=== PATIENT | female | born 1945 | race Caucasian/White ===

== ENCOUNTER → 2019-07-11 10:46 | Outpatient (CLI) | payer MEDICARE, SELFPAY ==
[2019-07-11 11:19] LABS: Basophils % 0.2 % (0.1-2.0); Eosinophils # 0.2 K/mm3 (0.0-0.4); Eosinophils % 3.3 % (0.1-12.0); Hematocrit 39.8 % (37.0-47.0); Hemoglobin 12.9 g/dL (12.2-16.2); Lymphocytes # 1.1 K/mm3 (0.7-4.5); Lymphocytes % 16.5 % (10-50); Mean Corpuscular HGB Conc 32.3 g/dL (31.8-35.4); Mean Corpuscular Hemoglobin 29.1 pg (27.0-31.2); Mean Platelet Volume 7.9 fl (7.4-10.4); Monocytes # 0.4 K/mm3 (0.1-1.0); Monocytes % 5.2 % (1.7-9.3); Neutrophils # 5.1 K/mm3 (1.8-7.8); Neutrophils % 74.8 % (37.0-80.0); Platelet Count 217 K/mm3 (142-424); Red Blood Count 4.42 M/mm3 (4.20-5.40); Red Cell Distribution Width 13.9 % (11.5-17.5); White Blood Count 6.9 K/mm3 (4.8-10.8)
[2019-07-11 11:56] LABS: Amylase 49 U/L (25-115); Anion Gap 10.8 mEq/L (5-15); Blood Urea Nitrogen 29 mg/dL (7-18); Calcium 9.4 mg/dL (8.5-10.1); Carbon Dioxide 29 mmol/L (21.0-32.0); Chloride 104 mmol/L (98-107); Creatinine,Serum 1.14 mg/dL (0.55-1.02); Estimated Glomerular Filt Rate 47 ml/min (>60); GFR (African American) 56 ML/MIN (>60); Glucose 98 mg/dL (74-106); Potassium 5.8 mmoL/L (3.5-5.1); Sodium 138 mmol/L (136-145)
== END ==
PROVIDERS: Visit Provider Internal Medicine
DX: K52.9 Noninfective gastroenteritis and colitis, unspecified (principal)
CPT/HCPCS: 36415; 80048; 82150; 85025

== ENCOUNTER → 2020-08-21 14:17 | Outpatient (POV) | payer MEDICARE, SELFPAY | PROVIDERS: Visit Provider Dermatology | DX: Z00.00 Encounter for general adult medical examination without abnormal findings (principal) ==

== ENCOUNTER → 2021-01-25 10:34 | Outpatient (CLI) | payer MEDICARE, SELFPAY ==
--- NOTE | 2021-01-25 | XR_ITS ---
PROCEDURE: XR SHOULDER LT MIN 2V CLINICAL INDICATION: LT SHOULDER INJURY Pain COMPARISON: None FINDINGS: No fracture or dislocation. No lytic or blastic change. There is normal mineralization. Mild osteoarthritic changes are present at the glenohumeral joint Other findings:None. IMPRESSION: No acute findings. Dictated by: Amandeep Bryan MD 01/25/2021 11:04 Amandeep Bryan MD in [place] 01/25/2021 11:04
--- NOTE | 2021-01-25 | XR_ITS ---
PROCEDURE: XR FINGER LT MIN 2V CLINICAL INDICATION: LT THUMB INJURY Pain COMPARISON: No exams were available for comparison FINDINGS: No fracture or dislocation. No lytic or blastic change. There is normal mineralization. Mild osteoarthritic changes are present at the interphalangeal joint of the thumb Other findings:None. IMPRESSION: No acute findings. Dictated by: Amandeep Bryan MD 01/25/2021 11:03 Amandeep Bryan MD in [facility] 01/25/2021 11:03
== END ==
PROVIDERS: PCP Internal Medicine; Visit Provider Internal Medicine
DX: S49.92XA Unspecified injury of left shoulder and upper arm, initial encounter; S69.92XA Unspecified injury of left wrist, hand and finger(s), initial encounter
CPT/HCPCS: 73030; 73140

== ENCOUNTER → 2021-05-22 16:12 | Outpatient (CLI) | payer MEDICARE, SELFPAY ==
[2021-05-22 16:23] LABS: Platelet Count 210 K/mm3 (142-424)
== END ==
PROVIDERS: Visit Provider Internal Medicine
DX: D69.6 Thrombocytopenia, unspecified (principal)
CPT/HCPCS: 85049

== ENCOUNTER → 2021-05-31 07:44 | Outpatient (CLI) | payer MEDICARE, SELFPAY ==
--- NOTE | 2021-05-31 07:49 | MR_ITS ---
PROCEDURE: MR THORACIC SPINE WO CON CLINICAL INDICATION: THORACIC SPINE PAIN Mid back pain. Starts on lt side and radiates across. Numbness. Symptoms [id number]. Symptoms getting worse. Previous 09/18/14. COMPARISON: MR TSW/O MRI-T-SPINE W/O from 09/18/2014 TECHNIQUE: Routine multiplanar multi echo sequences are performed without gadolinium enhancement. FINDINGS: Normal alignment. No acute fracture or dislocation. The spinal cord has an unremarkable appearance. Minimal bulging disc and mild degenerative disc disease at T10-T11 Mild multilevel degenerative disc disease. Small anterior osteophytes are noted as before. Minimal bulging disc T12-L1. Small left renal cyst. There is a small/6 mm area of decreased T1 and increased T2 signal in the left neural foramen at T10-T11 suggesting a small perineural cyst. No acute fracture or dislocation is evident. IMPRESSION: 1. Mild multilevel thoracic spondylosis with minimal bulging disc at T10-T11 which is not significantly changed. 2. 6 mm cystic appearing lesion in the left neural foramen at T10-T11 and may represent a small perineural cyst which may have slightly increased in size. Schwannoma would be included in the differential diagnosis. Repeat exam without and with contrast may aid for further evaluation to determine the difference between a schwannoma and perineural cyst. Dictated by: Amandeep Bryan MD 06/03/2021 08:10 Amandeep Bryan MD in [place] 06/03/2021 08:10
== END ==
PROVIDERS: PCP Internal Medicine; Visit Provider Internal Medicine
DX: M54.6 Pain in thoracic spine (principal)
CPT/HCPCS: 72146

== ENCOUNTER → 2021-06-17 10:50 | Outpatient (POV) | payer MEDICARE, SELFPAY ==
[2021-06-17 11:49] VITALS: BP 127/85; PULSE 77; RESP 18; O2SAT 98; BMI 24.3
--- NOTE | 2021-06-17 12:12 | HMH.PMCON ---
Assessment and Plan (1) Myofascial pain Status: Chronic Category: Medical Code(s): M79.18 - Myalgia, other site (2) Myofascial pain syndrome of thoracic spine Status: Chronic Category: Medical Code(s): M79.18 - Myalgia, other site - Assessment and plan all Dx Assessment and Plan for all problems:: We will schedule the patient for thoracic paraspinous muscle trigger point injections. The patient initially had pain on the left side which is now radiated into the right side as well. She also has pain under her left scapular area. We will perform trigger point injections to these areas to see if this helps with her pain. She has reported that deep massage and has given her significant relief. The patient did have an MRI that noted her to have a perineural cyst versus schwannoma. She is deferred on a repeat MRI with contrast at the recommendation of the radiologist. If the patient does not get relief with the injections, she may proceed with the repeat MRI with contrast. Risks and benefits of the procedure have been explained to the patient. Patient would like to proceed with the procedure. Possible side effects of corticosteroids have been discussed with the patient. Patient has been instructed to contact the clinic with any concerns before the next appointment. Dr. Ohara has reviewed this note and agrees with this plan of care. This note was dictated using voice recognition software and make contain errors or omissions. HPI - Data of Consult Patient: new to practice Consult date: 06/17/21 Requesting Physician: Mary Bunn APRN Primary Care Provider: Lefty Kowalski - Consult Narrative Reason for consult: Mid back pain History of present illness: Ms. Hernandez is a 76 year old female who presents today for consultation for mid back pain. Patient says that has back pain that is following her bra line. She says it initially started on the left side with numbness and deep throbbing pain. The pain has now progressed over to the right side as well. She says that it causes her to have difficulty sleeping at night as well as throughout the day. The pain is constant in nature. He says that it is a 5-like type pain that causes the pain to take her breath. Patient does say that deep massage and has given her some relief. The patient's MRI, she was reported to have a 6 mm cystic appearing lesion in the left neural foramen at T10-T11. This was reported to be possible small perineural cyst versus schwannoma. Per the report there was recommendation for a repeat exam with and without contrast to aid in further determination between the schwannoma and the perineural cyst. Patient has deferred on the MRI at this time. She feels her pain is higher than the area of the system within the MRI. The patient's pain appears to be myofascial in nature at this time. She is having pain under her left scapular area as well. She also says that she has some neck pain occasionally. She says massaging gives her much needed relief. She says that if she were able to have massages 2-3 times daily, she feels this would help with her pain. She has taken muscle relaxers in the past which have helped her somewhat however, did not take all the pain away. We did discuss trigger point injections to try initially. She would like to try this rather than repeat MRI with contrast. The patient's pain is a 6 out of 10. CC: Mary Bunn APRN [facility] History I have reviewed the patient's past medical history: Yes Medical History: Denies:: Anxiety, Cancer, Depression, Diabetes Mellitus Type 1, Diabetes Mellitus Type 2, Internal Pacemaker, Migraine, MRSA *Have you ever received a pneumonia vaccine?: Yes *Have you received a flu vaccine this season?: No Other Medical History: Reports: Hypothyroidism Other Surgeries: No: Pacemaker Amputation: No Fractures: No - *Social History Smoking Status: Never smoker Alcohol Intake: never Substance Use Type: de
== END ==
PROVIDERS: PCP Internal Medicine; Visit Provider Clinical Nurse Specialist Family Health
DX: M79.18 Myalgia, other site (principal)
CPT/HCPCS: 99202; G0463

== ENCOUNTER → 2021-11-27 11:28 | Outpatient (CLI) | payer MEDICARE, SELFPAY ==
[2021-11-27 11:45] LABS: Basophils # 0.2 K/mm3 (0-0.2); Basophils % 3.7 % (0.1-2.0); Eosinophils # 0.2 K/mm3 (0.0-0.4); Eosinophils % 4.6 % (0.1-12.0); Hematocrit 39.4 % (37.0-47.0); Hemoglobin 12.5 g/dL (12.2-16.2); Lymphocytes # 1.1 K/mm3 (0.7-4.5); Lymphocytes % 20.4 % (10-50); Mean Corpuscular HGB Conc 31.8 g/dL (31.8-35.4); Mean Corpuscular Hemoglobin 29.1 pg (27.0-31.2); Mean Corpuscular Volume 91.4 fl (81-99); Mean Platelet Volume 8.9 fl (7.4-10.4); Monocytes # 0.4 K/mm3 (0.1-1.0); Monocytes % 6.8 % (1.7-9.3); Neutrophils # 3.3 K/mm3 (1.8-7.8); Neutrophils % 64.5 % (37.0-80.0); Platelet Count 222 K/mm3 (142-424); Red Blood Count 4.31 M/mm3 (4.20-5.40); Red Cell Distribution Width 13.8 % (11.5-17.5); White Blood Count 5.2 K/mm3 (4.8-10.8)
[2021-11-27 12:23] LABS: Erythrocyte Sedimentation Rate 49 mm/hr (0-30)
[2021-11-27 12:29] LABS: Alanine Aminotransferase 17 U/L (12-78); Albumin Level 4.1 g/dl (3.5-5.0); Albumin/Globulin Ratio 1.1 (1.1-1.8); Alkaline Phosphatase 68 U/L (38-126); Anion Gap 9.1 mEq/L (5-15); Aspartate Amino Transferase 14 U/L (14-36); Bilirubin,Total 0.6 mg/dl (0.2-1.3); Blood Urea Nitrogen 30 mg/dl (7-17); Calcium 9.7 mg/dl (8.4-10.2); Carbon Dioxide 32 mmol/L (22.0-30.0); Chloride 104 mmol/L (98-107); Chol/HDL Ratio 6.9 (1-3.5); Cholesterol 220 mg/dl (140-200); Estimated Glomerular Filt Rate 48 ml/min (>60); GFR (African American) 58 ML/MIN (>60); Globulin 3.8 g/dL (1.3-3.2); Glucose 90 mg/dl (74-100); HDL Cholesterol 32 mg/dl (40-60); Potassium 5.1 mmoL/L (3.5-5.1); Sodium 140 mmol/L (136-145); Total Protein,Serum 7.9 g/dl (6.3-8.2); Triglycerides 120 mg/dl (30-150); VLDL Cholesterol 24 mg/dL (0-40)
[2021-11-27 12:41] LABS: Direct LDL Cholesterol 155.36 mg/dL (100-129)
[2021-11-27 13:03] LABS: Thyroid Stimulating Hormone 1.44 uIU/mL (0.465-4.68)
[2021-11-27 13:37] LABS: Vitamin B12 319 pg/mL (239-931)
[2021-11-28 13:17] LABS: Albumin 3.3 g/dL (2.9-4.4); Alpha-1-Globulin 0.1 g/dL (0.0-0.4); Alpha-2-Globulin 0.7 g/dL (0.4-1.0); Gamma Globulin 2.6 g/dL (0.4-1.8); Protein, Total 7.8 g/dL (6.0-8.5)
== END ==
PROVIDERS: Visit Provider Internal Medicine
DX: E03.9 Hypothyroidism, unspecified (principal); E78.5 Hyperlipidemia, unspecified; D64.9 Anemia, unspecified; M35.00 Sjogren syndrome, unspecified; F51.01 Primary insomnia
CPT/HCPCS: 80053; 80061; 82607; 82746; 84155; 84165; 84443; 85025; 85651

== ENCOUNTER → 2022-01-27 11:12 | Outpatient (CLI) | payer MEDICARE, SELFPAY ==
--- NOTE | 2022-01-27 11:20 | XR_ITS ---
FINAL REPORT CLINICAL HISTORY: pain FINDINGS: LEFT FOOT: Three weight-bearing views of the left foot were obtained. There is no acute fracture or dislocation. The joint spaces are intact. There is no soft tissue abnormality. IMPRESSION: No acute bony abnormality. Reviewed, Interpreted and Dictated by Baljinder Hernandez III, MD Transcribed by Martell Dutta Authenticated by Baljinder Henrandez III, MD on 01/27/2022 12:59:48 PM [facility]
--- NOTE | 2022-01-27 11:20 | XR_ITS ---
FINAL REPORT CLINICAL HISTORY: pain FINDINGS: RIGHT FOOT: Three weight-bearing views of the right foot were obtained. There is no acute fracture or dislocation. The joint spaces are intact. There is no soft tissue abnormality. IMPRESSION: No acute bony abnormality. Reviewed, Interpreted and Dictated by Baljinder Hernandez III, MD Transcribed by Martell Dutta Authenticated by Baljinder Hernandez III, MD on 01/27/2022 12:59:46 PM [facility]
== END ==
PROVIDERS: PCP Internal Medicine; Visit Provider Podiatrist
DX: L84 Corns and callosities (principal)
CPT/HCPCS: 73630

== ENCOUNTER → 2022-02-12 09:11 | Outpatient (CLI) | payer MEDICARE, SELFPAY ==
--- NOTE | 2022-02-12 | US_ITS ---
FINAL REPORT CLINICAL HISTORY: bilateral rest pain, bilateral claudication. Cold and discolored toes. FINDINGS: Complete ankle brachial indices was obtained. The right JOHN is 1.22. The left JOHN is 1.22. IMPRESSION: ABIs are within normal limits bilaterally. Reviewed, Interpreted and Dictated by Coy Sofia MD Transcribed by Brigette Haile Authenticated by Coy Sofia MD on 02/12/2022 11:06:13 AM [facility]
--- NOTE | 2022-02-12 10:18 | XR_ITS ---
FINAL REPORT TECHNIQUE: Chest PA & Lateral CLINICAL HISTORY: COUGH AND WHEEZING FINDINGS: 2 views of the chest were performed. The heart size is normal. The mediastinum is within normal limits. There is no acute cardiopulmonary process. There are no pleural effusions. There is no pneumothorax. The bony thorax appears intact. IMPRESSION: No acute cardiopulmonary process. Reviewed, Interpreted and Dictated by Coy Sofia MD Transcribed by Martell Dutta Authenticated by Coy Sofia MD on 02/12/2022 11:06:08 AM [facility]
[2022-02-21 21:32] LABS: Bordetella parapertussis DNA NEGATIVE; Bordetella pertussis DNA NEGATIVE
== END ==
PROVIDERS: PCP Internal Medicine; Visit Provider Internal Medicine
DX: R05.9 Cough, unspecified (principal); R06.2 Wheezing; R09.89 Other specified symptoms and signs involving the circulatory and respiratory systems
CPT/HCPCS: 71046; 87798; 93923

== ENCOUNTER → 2022-05-26 12:00 | Outpatient (CLI) | payer MEDICARE, SELFPAY ==
[2022-05-26 13:10] LABS: Basophils % 0.4 % (0.1-2.0); Eosinophils # 0.2 K/mm3 (0.0-0.4); Eosinophils % 3.2 % (0.1-12.0); Hematocrit 37.7 % (37.0-47.0); Hemoglobin 12.2 g/dL (12.2-16.2); Lymphocytes # 1.2 K/mm3 (0.7-4.5); Lymphocytes % 21.9 % (10-50); Mean Corpuscular HGB Conc 32.3 g/dL (31.8-35.4); Mean Corpuscular Hemoglobin 28.7 pg (27.0-31.2); Mean Corpuscular Volume 88.8 fl (81-99); Mean Platelet Volume 9.3 fl (7.4-10.4); Monocytes # 0.4 K/mm3 (0.1-1.0); Monocytes % 7.5 % (1.7-9.3); Neutrophils # 3.7 K/mm3 (1.8-7.8); Neutrophils % 67.1 % (37.0-80.0); Platelet Count 235 K/mm3 (142-424); Red Blood Count 4.25 M/mm3 (4.20-5.40); Red Cell Distribution Width 13.6 % (11.5-17.5); White Blood Count 5.6 K/mm3 (4.8-10.8)
[2022-05-26 13:38] LABS: Alanine Aminotransferase 18 U/L (12-78); Albumin Level 3.7 g/dl (3.5-5.0); Albumin/Globulin Ratio 0.9 (1.1-1.8); Alkaline Phosphatase 75 U/L (38-126); Anion Gap 8.2 mEq/L (5-15); Aspartate Amino Transferase 13 U/L (14-36); Bilirubin,Total 0.6 mg/dl (0.2-1.3); Blood Urea Nitrogen 26 mg/dl (7-17); Carbon Dioxide 29 mmol/L (22.0-30.0); Chloride 109 mmol/L (98-107); Cholesterol 202 mg/dl (140-200); Estimated Glomerular Filt Rate 54 ml/min (>60); GFR (African American) 65 ML/MIN (>60); Globulin 4.1 g/dL (1.3-3.2); Glucose 87 mg/dl (74-100); HDL Cholesterol 29 mg/dl (40-60); Potassium 5.2 mmoL/L (3.5-5.1); Sodium 141 mmol/L (136-145); Total Protein,Serum 7.8 g/dl (6.3-8.2); Triglycerides 140 mg/dl (30-150); VLDL Cholesterol 28 mg/dL (0-40)
[2022-05-26 13:39] LABS: Erythrocyte Sedimentation Rate 44 mm/hr (0-30)
[2022-05-26 14:08] LABS: Thyroid Stimulating Hormone 2.09 uIU/mL (0.465-4.68)
== END ==
PROVIDERS: PCP Internal Medicine; Visit Provider Internal Medicine
DX: E03.9 Hypothyroidism, unspecified (principal); E78.5 Hyperlipidemia, unspecified; D64.9 Anemia, unspecified; M35.00 Sjogren syndrome, unspecified; Z85.42 Personal history of malignant neoplasm of other parts of uterus
CPT/HCPCS: 80053; 80061; 84443; 85025; 85651

== ENCOUNTER 2022-08-23 08:51 | Emergency (ER) | payer MEDICARE, SELFPAY ==
[2022-08-23 09:04] VITALS: BP 178/78; PULSE 70; RESP 17; TEMP 36.8; O2SAT 97; BMI 24.7
--- NOTE | 2022-08-23 09:34 | EXP.UTC ---
Discharge Plan Disposition Patient Disposition: Home, Self-Care Condition: Good Prescriptions Prescriptions: New cephalexin 500 mg capsule 500 mg PO QID Qty: 40 0RF mupirocin 2 % ointment 1 applic topical TID 7 Days Qty: 22 0RF No Action levothyroxine [Synthroid] 25 mcg tablet 25 mcg PO DAILY Referrals Follow up/Referrals: Lefty Kowalski MD [Primary Care Provider] - See instructions Activity Restrictions/Add. Instructions Additional Instructions/Restrictions: Keep the wounds clean and dry. Follow up with your regular doctor. Take the antibiotics as directed and apply the topical antibiotics as directed. Watch the wounds for signs of worsening infection, such as worsening redness, drainage, swelling, etc. GO TO THE ER FOR ANY WORSENING SYMPTOMS Return to the ER if you have any of the followin. Vomiting 2. Develop a severe or worsening headache 3. Become more and more drowsy. 4. Become confused or not acting normally 5. Have a hard time walking, talking, or seeing 6. Develop a stiff neck 7. Has a seizure or any abnormal movements or behaviors that worry you 8. Has weakness or numbness involving any part of the body Clinical Impressions Clinical Impression: Fall, Closed head injury, Superficial abrasion, Laceration of hand, right, Laceration of left leg Instructions Patient Instructions: How to Prevent Falls, DI for Closed Head Injury, Closed Head Injury, DI for Abrasion, DI for Minor Laceration Discharge ED Provider: Francis Contreras [facility] General Stated complaint: fall scuff on face, shoulder pain Mode of Arrival: Ambulatory Source of Information: Patient and Relative Limitations: No Limitations Time Seen by Provider: 08/23/22 09:33 Description of Symptoms (Recalled from Triage Doc. by RN): pt states that she fell this am between [id number]. pt fell and hit right side of face, and right shoulder. pts family member states that she has been getting confused for the past hour HEENT Symptoms (Recalled from RN notes): No Resp Symptoms (Recalled from RN notes): No Skin Symptoms (Recalled from RN notes): No MS Symptoms (Recalled from RN notes): Yes Functional Status (Recalled from RN notes): n/a History of Present Illness Provider Complaint: She states that she fell forwards when she was bending over to put her dog on a leash to take it out. When she fell, she came down on the right side of her face and right shoulder. She is c/o right shoulder pain. She has superficial abrasions on the right side of her face and on her upper lip. She has a laceration on the palm of her left hand and a laceration on her right joe area. She denies neck pain, head pain, or any other complaints. She states that she had a period of confusion after her fall. She denies any confusion now. She adamantly refuses transfer to the ER. Her tetanus immunization is up to date. She states that she had one 3 to 4 years ago. Related Data Home Medications Medication Instructions Recorded Confirmed levothyroxine 25 mcg tablet 25 mcg PO DAILY thyroid 06/14/18 08/23/22 (Synthroid) Previous Rx's Medication Instructions Recorded cephalexin 500 mg capsule 500 mg PO QID #40 caps 08/23/22 mupirocin 2 % topical ointment 1 applic topical TID 7 days #22 08/23/22 grams Allergies Allergy/AdvReac Type Severity Reaction Status Date / Time No Known Drug Allergies - Allergy Unknown Uncoded 06/14/18 15:22 Nkda Worker's Comp Is this a Worker's Comp case?: No PFSH PFSH Social History Smoking Status: Never smoker second hand exposure: No alcohol intake: never substance use type: denies use current occupational status: employed Travel in the last 8 weeks: None housing: house current occupational exposures/hazards: No caffeine: Yes ROS Obtained: Yes All systems reviewed & no additional complaints except
[2022-08-23 09:54] VITALS: BP 178/78; PULSE 70; RESP 17; TEMP 36.8
== END 2022-08-23 10:00 | disposition home or self-care (01) ==
PROVIDERS: Emergency Provider Nurse Practitioner Family; PCP Internal Medicine
DX: S81.811A Laceration without foreign body, right lower leg, initial encounter (principal); S61.411A Laceration without foreign body of right hand, initial encounter; S00.81XA Abrasion of other part of head, initial encounter; S09.90XA Unspecified injury of head, initial encounter; M25.511 Pain in right shoulder; Z79.899 Other long term (current) drug therapy; W19.XXXA Unspecified fall, initial encounter
CPT/HCPCS: 99213; G0463

== ENCOUNTER 2022-10-25 11:15 | Emergency (ER) | payer MEDICARE, SELFPAY ==
[2022-10-25 11:30] VITALS: BP 130/73; PULSE 74; RESP 19; TEMP 36.6; O2SAT 98; BMI 23.8
--- NOTE | 2022-10-25 11:45 | EXP.UTC ---
Discharge Plan Disposition Patient Disposition: Home, Self-Care Condition: Good Prescriptions Prescriptions: New prednisone 10 mg tablet 10 mg PO BID 5 Days Qty: 10 0RF azithromycin [Zithromax Z-Benny] 250 mg tablet See Rx Instructions .ROUTE .COMPLEX 5 Days Qty: 6 0RF Rx Instructions: For 250 mg dose pack: take 500 mg today (day 1), then 250 mg for 4 days (days 2-5) No Action levothyroxine [Synthroid] 25 mcg tablet 25 mcg PO DAILY cephalexin 500 mg capsule 500 mg PO QID Qty: 40 0RF mupirocin 2 % ointment 1 applic topical TID 7 Days Qty: 22 0RF Referrals Follow up/Referrals: Lefty oKwalski MD [Primary Care Provider] - See instructions Activity Restrictions/Add. Instructions Additional Instructions/Restrictions: *Monitor Temp, Over the counter Motrin or Tylenol as directed/as needed Tylenol every 4 hours and Motrin every 6 hours (as long as your family doctor has told you that you can take it) for fever or pain. and straight to ER if unable to lower temp less than 101.0 after medication given *Warm salt water gargles may help to soothe the throat *Throat Lozenges? *Warm fluids like tea with honey may help to soothe the throat? *Sleep elevated *Humidifier/Vaporizer Your throat swab was sent for culture. Those results are typically sent to your primary care. Be sure to follow up in 2-3 days with your family doctor/primary care physician if no improvement so they can review those result and treat if necessary. If you don?t have a primary care doctor, I recommend you get one but in the mean time, you will have to return to a walk in clinic Follow up IMMEDIATELY for new or worsening symptoms or no Noticeable improvement over the next 48-72 hours. 911 for difficulty breathing or swallowing Instructions Patient Instructions: Sore Throat, DI for Nasal Congestion Discharge ED Provider: Geni Maya [facility] [place] HPI General Stated complaint: sore throat Mode of Arrival: Ambulatory Source of Information: Patient Limitations: No Limitations Time Seen by Provider: 10/25/22 11:45 Description of Symptoms (Recalled from Triage Doc. by RN): PATIENT C/O COUGH, CONGESTION AND SORE THROAT SINCE YESTERDAY HEENT Symptoms (Recalled from RN notes): Yes Resp Symptoms (Recalled from RN notes): Yes Skin Symptoms (Recalled from RN notes): No MS Symptoms (Recalled from RN notes): No Functional Status (Recalled from RN notes): WNL History of Present Illness Provider Complaint: Patient states that she has been having cough, nasal congestion and sore throat States that sore throat has continued to get worse since yesterday States that hurts when she swallows States that today her throat was still hurting so her son made her come in and get checked Related Data Home Medications Medication Instructions Recorded Confirmed levothyroxine 25 mcg tablet 25 mcg PO DAILY thyroid 06/14/18 08/23/22 (Synthroid) Previous Rx's Medication Instructions Recorded cephalexin 500 mg capsule 500 mg PO QID #40 caps 08/23/22 mupirocin 2 % topical ointment 1 applic topical TID 7 days #22 08/23/22 grams azithromycin 250 mg tablet See Rx Instructions PO .COMPLEX 5 10/25/22 (Zithromax Z-Benny) days #6 tabs prednisone 10 mg tablet 10 mg PO BID 5 days #10 tabs 10/25/22 Allergies Allergy/AdvReac Type Severity Reaction Status Date / Time No Known Drug Allergies - Allergy Unknown Uncoded 06/14/18 15:22 Nkda Worker's Comp Is this a Worker's Comp case?: No [facility] Disclaimer: The information contained in this section may have been updated after the patient was seen, as this information can be updated by other users. Medical History (Updated 10/25/22 @ 11:45 by Padmini Lee RN) No significant past medical history Social History (Updated 10/25/22 @ 11:45 by Padmini Lee RN) Smoking Status: Never smoker second hand exposure: No alcohol intake: never substance use
[2022-10-25 12:07] VITALS: BP 130/73; PULSE 74; RESP 19; TEMP 36.6; O2SAT 98
== END 2022-10-25 12:10 | disposition home or self-care (01) ==
PROVIDERS: Emergency Provider Nurse Practitioner; PCP Internal Medicine
DX: J02.9 Acute pharyngitis, unspecified (principal)
CPT/HCPCS: 99212; G0463

== ENCOUNTER → 2022-11-24 12:25 | Outpatient (CLI) | payer MEDICARE, SELFPAY ==
[2022-11-24 13:16] LABS: Chloride 105 mmol/L (98-107); Potassium 4.7 mmoL/L (3.5-5.1); Sodium 141 mmol/L (136-145)
[2022-11-24 13:17] LABS: Basophils % 0.3 % (0.1-2.0); Eosinophils # 0.1 K/mm3 (0.0-0.4); Eosinophils % 1.7 % (0.1-12.0); Hematocrit 39.1 % (37.0-47.0); Hemoglobin 12.4 g/dL (12.2-16.2); Lymphocytes # 0.9 K/mm3 (0.7-4.5); Lymphocytes % 12.1 % (10-50); Mean Corpuscular HGB Conc 31.8 g/dL (31.8-35.4); Mean Corpuscular Hemoglobin 28.6 pg (27.0-31.2); Mean Corpuscular Volume 89.9 fl (81-99); Mean Platelet Volume 9.5 fl (7.4-10.4); Monocytes # 0.4 K/mm3 (0.1-1.0); Monocytes % 5.8 % (1.7-9.3); Neutrophils # 5.8 K/mm3 (1.8-7.8); Neutrophils % 80.1 % (37.0-80.0); Platelet Count 241 K/mm3 (142-424); Red Blood Count 4.35 M/mm3 (4.20-5.40); Red Cell Distribution Width 14.4 % (11.5-17.5); White Blood Count 7.2 K/mm3 (4.8-10.8)
[2022-11-24 13:19] LABS: Alanine Aminotransferase 14 U/L (12-78); Albumin Level 3.7 g/dl (3.5-5.0); Albumin/Globulin Ratio 0.9 (1.1-1.8); Alkaline Phosphatase 95 U/L (38-126); Anion Gap 10.7 mEq/L (5-15); Aspartate Amino Transferase 12 U/L (14-36); Blood Urea Nitrogen 23 mg/dl (7-17); Calcium 8.6 mg/dl (8.4-10.2); Carbon Dioxide 30 mmol/L (22.0-30.0); Estimated Glomerular Filt Rate 54 ml/min (>60); GFR (African American) 65 ML/MIN (>60); Globulin 4.1 g/dL (1.3-3.2); Glucose 88 mg/dl (74-100); Total Protein,Serum 7.8 g/dl (6.3-8.2)
== END ==
PROVIDERS: PCP Internal Medicine; Visit Provider Internal Medicine
DX: E03.9 Hypothyroidism, unspecified (principal); E78.5 Hyperlipidemia, unspecified; M35.01 Sjogren syndrome with keratoconjunctivitis; D64.9 Anemia, unspecified; J45.901 Unspecified asthma with (acute) exacerbation
CPT/HCPCS: 80053; 84443; 85025

== ENCOUNTER → 2023-06-01 14:25 | Outpatient (CLI) | payer MEDICARE, SELFPAY ==
[2023-06-01 18:43] LABS: Alanine Aminotransferase 21 U/L (12-78); Albumin Level 3.9 g/dl (3.5-5.0); Alkaline Phosphatase 82 U/L (38-126); Aspartate Amino Transferase 15 U/L (14-36); Bilirubin,Total 0.7 mg/dl (0.2-1.3); Blood Urea Nitrogen 29 mg/dl (7-17); Carbon Dioxide 30 mmol/L (22.0-30.0); Chloride 107 mmol/L (98-107); Cholesterol 245 mg/dl (140-200); Estimated Glomerular Filt Rate 48 ml/min (>60); GFR (African American) 58 ML/MIN (>60); Globulin 4.1 g/dL (1.3-3.2); Glucose 79 mg/dl (74-100); HDL Cholesterol 35 mg/dl (40-60); Sodium 142 mmol/L (136-145); Triglycerides 133 mg/dl (30-150); VLDL Cholesterol 27 mg/dL (0-40)
[2023-06-01 18:55] LABS: Direct LDL Cholesterol 148.28 mg/dL (100-129)
[2023-06-01 19:12] LABS: Thyroid Stimulating Hormone 1.39 uIU/mL (0.465-4.68)
== END ==
PROVIDERS: PCP Internal Medicine; Visit Provider Internal Medicine
DX: E03.9 Hypothyroidism, unspecified (principal); E78.5 Hyperlipidemia, unspecified; D64.9 Anemia, unspecified; M15.0 Primary generalized (osteo)arthritis; M35.00 Sjogren syndrome, unspecified
CPT/HCPCS: 80053; 80061; 84443

== ENCOUNTER → 2023-06-05 15:40 | Outpatient (CLI) | payer MEDICARE, SELFPAY ==
[2023-06-05 16:51] LABS: Potassium 5.1 mmoL/L (3.5-5.1)
== END ==
LOC: LAB.DROPOF 15:41
PROVIDERS: PCP Internal Medicine; Visit Provider Internal Medicine
DX: E87.5 Hyperkalemia (principal)
CPT/HCPCS: 84132

== ENCOUNTER 2023-12-01 12:13 | Outpatient (CLI) | payer MEDICARE, SELFPAY ==
[2023-12-01 12:46] LABS: Basophils % 0.7 % (0.1-2.0); Eosinophils # 0.2 K/mm3 (0.0-0.4); Hematocrit 37.3 % (37.0-47.0); Lymphocytes # 1.1 K/mm3 (0.7-4.5); Lymphocytes % 20.9 % (10-50); Mean Corpuscular HGB Conc 34.9 g/dL (31.8-35.4); Mean Corpuscular Hemoglobin 31.2 pg (27.0-31.2); Mean Corpuscular Volume 89.6 fl (81-99); Mean Platelet Volume 9.7 fl (7.4-10.4); Monocytes # 0.4 K/mm3 (0.1-1.0); Monocytes % 6.7 % (1.7-9.3); Neutrophils # 3.6 K/mm3 (1.8-7.8); Neutrophils % 67.8 % (37.0-80.0); Platelet Count 180 K/mm3 (142-424); Red Blood Count 4.16 M/mm3 (4.20-5.40); Red Cell Distribution Width 14.5 % (11.5-17.5); White Blood Count 5.3 K/mm3 (4.8-10.8)
[2023-12-01 12:55] LABS: Chloride 104 mmol/L (98-107); Sodium 140 mmol/L (136-145)
[2023-12-01 12:56] LABS: Potassium 4.6 mmoL/L (3.5-5.1)
[2023-12-01 12:58] LABS: Alanine Aminotransferase 19 U/L (12-78); Anion Gap 9.6 mEq/L (5-15); Aspartate Amino Transferase 16 U/L (14-36); Blood Urea Nitrogen 26 mg/dl (7-17); Carbon Dioxide 31 mmol/L (22.0-30.0); Cholesterol 245 mg/dl (140-200); Estimated Glomerular Filt Rate 48 ml/min (>60); GFR (African American) 58 ML/MIN (>60); Triglycerides 160 mg/dl (30-150); VLDL Cholesterol 32 mg/dL (0-40)
[2023-12-01 12:59] LABS: Albumin Level 4.1 g/dl (3.5-5.0); Alkaline Phosphatase 82 U/L (38-126); Bilirubin,Total 0.7 mg/dl (0.2-1.3); Calcium 9.4 mg/dl (8.4-10.2); Chol/HDL Ratio 6.6 (1-3.5); Glucose 75 mg/dl (74-100); HDL Cholesterol 37 mg/dl (40-60); Total Protein,Serum 8.1 g/dl (6.3-8.2)
[2023-12-01 13:10] LABS: Direct LDL Cholesterol 144.09 mg/dL (100-129)
[2023-12-01 13:30] LABS: Thyroid Stimulating Hormone 3.31 uIU/mL (0.465-4.68)
== END 2023-12-01 23:59 ==
LOC: LAB.DROPOF 12:14
PROVIDERS: PCP Internal Medicine; Visit Provider Internal Medicine
DX: E03.9 Hypothyroidism, unspecified (principal); E78.5 Hyperlipidemia, unspecified; D69.6 Thrombocytopenia, unspecified; F51.01 Primary insomnia; G60.9 Hereditary and idiopathic neuropathy, unspecified; M35.00 Sjogren syndrome, unspecified; M47.25 Other spondylosis with radiculopathy, thoracolumbar region; Z85.42 Personal history of malignant neoplasm of other parts of uterus
CPT/HCPCS: 80053; 80061; 84443; 85025

== ENCOUNTER 2023-12-23 09:25 | Day surgery (SDC) | payer MEDICARE, SELFPAY ==
[2023-12-22 09:39] VITALS: BMI 23.7
[2023-12-23] MEDS: LACTATED RINGERS 1000ML 1,000 ML 25 ML IV (09:50)
[2023-12-23 09:54] VITALS: BP 160/73; PULSE 75; RESP 18; TEMP 36.2; O2SAT 98
[2023-12-23 10:55] VITALS: O2SAT 98
--- NOTE | 2023-12-23 11:11 | HMH.SCOPE ---
Procedure: Date: 12/23/23 Patient Date of :: 1945 Procedure Performed:: EGD Indications:: The patient is a 78-year-old who presents for EGD evaluation of dysphagia symptoms. Patient reports dysphagia to both solids and liquids. Performing Provider:: Ruben You MD Referring Provider:: Lefty Kowalski MD Sedation:: See RN records Procedure:: The gastroscope was gently passed through the incisoral orifice into the oral cavity and under direct visualization the esophagus was intubated. The endoscope was passed down the esophagus, through the stomach, and into the duodenum. Color, texture, mucosa, and anatomy of the esophagus, stomach, and duodenum were carefully examined with the scope. Findings:: The distal esophagus was tortuous. Z-line was measured at approximately 35 cm. There was a nonobstructing Schatzki ring seen in the distal esophagus. There is a hiatal hernia approximately 2 cm in size. There was an inflammatory appearing polyp 10 to 11 mm in size in the gastric cardia. The polyp was removed with hot snare polypectomy. Polyp was retrieved. There was mild inflammation seen in the gastric antrum and body characterized by erythema. Biopsies were taken with a cold forceps for histology. The duodenum appeared normal. Esophageal dilatation was performed sequentially with an 18 to 20 mm TTS balloon at the Schatzki ring. Recommendations:: Await pathology result If patient's dysphagia symptoms does not improve after esophageal dilatation, then recommend barium esophagram with tablet. Follow up with referring physician Complications:: None Estimated blood obtained (mL): 0 Colonoscopy Component Colonoscopy Component Was a colonoscopy performed during today's procedure?: No
[2023-12-23 11:15] VITALS: BP 114/65; PULSE 67; RESP 15; TEMP 36.6; O2SAT 95
[2023-12-23 11:25] VITALS: BP 126/77; PULSE 61; RESP 17; O2SAT 98
[2023-12-23 11:35] VITALS: BP 127/67; PULSE 62; RESP 17; O2SAT 98
[2023-12-23 12:05] VITALS: BP 139/83; PULSE 60; RESP 17; O2SAT 98
--- NOTE | 2023-12-23 12:53 | EXP.ANES.CKL ---
[facility] Disclaimer: The information contained in this section may have been updated after the patient was seen, as this information can be updated by other users. Medical History Hypothyroid Surgical History History of appendectomy History of hysterectomy Family History Other No significant family history Social History Smoking Status: Never smoker second hand exposure: No alcohol intake: never substance use type: denies use current occupational status: employed Travel in the last 8 weeks: None housing: house current occupational exposures/hazards: No caffeine: Yes [facility] Anesthesia Checklist Patient Identification Patient Identification: Arm Band and Family Structural Data Admitted From: Home Planned Operative Procedure/s: EGD Verified Documents: Surgical Consent and History and Physical NPO Status Verified Time NPO: 00:00 Additional verifications Patient : No Anesthesia Reactions: No Hx Blood Transfusions: No Blood Transfusion Reaction: No Cephalosporin Allergy: No Previous Colonoscopy: Yes Airway Assessment Mallampati Score:: Class III C-Spine Mobility Assessed: Yes TMJ Mobility Assessed: Yes Dentition: Good Dentition Neurological Assessment Level of Consciousness: Awake, Alert, Appropriate and Follows Commands Hx Seizures: No Numbness or tingling in extremities: No Anesthesia Plan ASA Class: II Anesthesia Type: MAC Preoperative Comments Pre-Operative Comments: Hypothroid. Dysphagia. Abdominal pain. GERD.
== END 2023-12-23 12:15 | disposition home or self-care (01) ==
PROVIDERS: PCP Internal Medicine; Visit Provider Internal Medicine
PROC: 0DJ08ZZ Inspection of Upper Intestinal Tract, Via Natural or Artificial Opening Endoscopic (ICD-10-PCS; CPT 43235; principal; 2023-12-23 10:30)
DX: R13.10 Dysphagia, unspecified (principal); K22.89 Other specified disease of esophagus; K22.2 Esophageal obstruction; K44.9 Diaphragmatic hernia without obstruction or gangrene; K29.50 Unspecified chronic gastritis without bleeding; K31.A0 Gastric intestinal metaplasia, unspecified; K31.7 Polyp of stomach and duodenum
CPT/HCPCS: 43239; 43249; 43251; 88305; 88342; C1726

== ENCOUNTER 2024-05-30 15:27 | Outpatient (CLI) | payer MEDICARE, SELFPAY ==
[2024-05-30 18:18] LABS: Basophils % 0.4 % (0.1-2.0); Eosinophils # 0.2 K/mm3 (0.0-0.4); Eosinophils % 3.5 % (0.1-12.0); Hematocrit 41.3 % (37.0-47.0); Lymphocytes # 0.9 K/mm3 (0.7-4.5); Lymphocytes % 19.1 % (10-50); Mean Corpuscular HGB Conc 31.5 g/dL (31.8-35.4); Mean Corpuscular Hemoglobin 30.2 pg (27.0-31.2); Mean Corpuscular Volume 95.8 fl (81-99); Mean Platelet Volume 9.8 fl (7.4-10.4); Monocytes # 0.4 K/mm3 (0.1-1.0); Monocytes % 7.8 % (1.7-9.3); Neutrophils # 3.1 K/mm3 (1.8-7.8); Neutrophils % 69.1 % (37.0-80.0); Platelet Count 243 K/mm3 (142-424); Red Blood Count 4.31 M/mm3 (4.20-5.40); Red Cell Distribution Width 14.3 % (11.5-17.5); White Blood Count 4.5 K/mm3 (4.8-10.8)
[2024-05-30 18:24] LABS: Alanine Aminotransferase 15 U/L (12-78); Albumin Level 3.7 g/dl (3.5-5.0); Albumin/Globulin Ratio 0.9 (1.1-1.8); Alkaline Phosphatase 74 U/L (38-126); Anion Gap 9.9 mEq/L (5-15); Aspartate Amino Transferase 12 U/L (14-36); Bilirubin,Total 0.9 mg/dl (0.2-1.3); Blood Urea Nitrogen 40 mg/dl (7-17); Calcium 9.4 mg/dl (8.4-10.2); Carbon Dioxide 28 mmol/L (22.0-30.0); Chloride 106 mmol/L (98-107); Chol/HDL Ratio 5.7 (1-3.5); Cholesterol 218 mg/dl (140-200); Estimated Glomerular Filt Rate 48 ml/min (>60); GFR (African American) 58 ML/MIN (>60); Globulin 4.2 g/dL (1.3-3.2); Glucose 74 mg/dl (74-100); HDL Cholesterol 38 mg/dl (40-60); Potassium 4.9 mmoL/L (3.5-5.1); Sodium 139 mmol/L (136-145); Total Protein,Serum 7.9 g/dl (6.3-8.2); Triglycerides 126 mg/dl (30-150); VLDL Cholesterol 25 mg/dL (0-40)
[2024-05-30 18:35] LABS: Direct LDL Cholesterol 125.06 mg/dL (100-129)
[2024-05-30 19:19] LABS: Vitamin B12 487 pg/mL (239-931)
== END 2024-05-30 23:59 | disposition home or self-care (01) ==
LOC: LAB.DROPOF 05-31 15:28
PROVIDERS: PCP Internal Medicine; Visit Provider Internal Medicine
DX: C54.1 Malignant neoplasm of endometrium (principal); E03.9 Hypothyroidism, unspecified; G62.9 Polyneuropathy, unspecified; M19.90 Unspecified osteoarthritis, unspecified site; E78.5 Hyperlipidemia, unspecified; Z68.25 Body mass index [BMI] 25.0-25.9, adult
CPT/HCPCS: 80050; 80053; 80061; 82607; 84443; 85025

== ENCOUNTER 2024-06-06 08:53 | Outpatient (CLI) | payer MEDICARE, SELFPAY ==
--- NOTE | 2024-06-06 08:54 | FL_ITS ---
FINAL REPORT CLINICAL HISTORY: dysphagia ft 1:02 36.79mgy FINDINGS: BARIUM SWALLOW HISTORY: Dysphagia. TECHNIQUE: The patient ingested barium contrast. Spot and overhead films were performed. A total of 37 images were saved. FINDINGS: There is a small sliding-type hiatal hernia. There is no gastroesophageal reflux demonstrated. No mucosal defects are seen. There is mild esophageal dysmotility. No changes of esophagitis are evident. 13 mm barium tablet passes easily through the esoophagus and into the stomach. FLUOROSCOPY TIME: 1 minute 2 seconds Radiation exposure in Reference air Kerma: 36.79 mGy IMPRESSION: Small sliding-type hiatal hernia. Mild esophageal dysmotility. Otherwise, unremarkable barium swallow. Reviewed, Interpreted and Dictated by Baljinder Hernandez III, MD Transcribed by Meagan Durbin PA-C Authenticated and . [facility]
--- NOTE | 2024-06-06 08:54 | US_ITS ---
FINAL REPORT CLINICAL HISTORY: R94.4 - Abnormal results of kidney function studies COMPARISON: None FINDINGS: RENAL ULTRASOUND Ultrasound images of the kidneys were obtained. Limited images of the liver parenchyma demonstrates normal echogenicity. The right kidney measures 9.1 cm in length. It is normal echogenicity. There is no hydronephrosis. The left kidney measures 8.5 cm in length. It is normal echogenicity. There is no hydronephrosis. IMPRESSION: Normal renal ultrasound. Reviewed, Interpreted and Dictated by Baljinder Hernandez III, MD Transcribed by Precious Altman Authenticated and . [facility]
[2024-06-06] MEDS: BARIUM SULFATE (E-Z-HD 340GM);135ML BOTTLE 135 ML PO (09:32)
[2024-06-06] MEDS: BARIUM SULFATE(LIQUID E-Z-PAQUE);355ML BOTTLE 355 ML PO (09:32)
== END 2024-06-06 23:59 | disposition home or self-care (01) ==
LOC: RAD 08:54
PROVIDERS: PCP Internal Medicine; Visit Provider Internal Medicine
DX: K22.2 Esophageal obstruction (principal); R13.10 Dysphagia, unspecified; R94.4 Abnormal results of kidney function studies
CPT/HCPCS: 74220; 76770

== ENCOUNTER 2024-11-28 09:52 | Outpatient (CLI) | payer MEDICARE, SELFPAY ==
--- NOTE | 2024-11-28 09:55 | XR_ITS ---
FINAL REPORT CLINICAL HISTORY: Right ankle pain and swelling bilaterally..fall COMPARISON: None FINDINGS: RIGHT ANKLE 3 views of the right ankle were obtained. There is a 1.3 cm ossific density inferior to the medial malleolus which appears to represent a fracture. Tiny ossific densities are seen inferior to the lateral malleolus which may represent small avulsions. There is a large effusion about the ankle. The mortise is intact. Visualized joint spaces are normally aligned. There is diffuse soft tissue swelling about the ankle. IMPRESSION: Medial meniscal fracture with possible lateral meniscal avulsions. Reviewed, Interpreted and Dictated by Coy Sofia MD Transcribed by Precious Altman Authenticated and [facility]
--- NOTE | 2024-11-28 09:55 | XR_ITS ---
FINAL REPORT CLINICAL HISTORY: Left shoulder pain posteriorly COMPARISON: None FINDINGS: LEFT SHOULDER 4 views of the left shoulder were obtained. There is no acute fracture or dislocation. Visualized joint spaces are normally aligned. Soft tissues are unremarkable. IMPRESSION: No acute bony abnormality. Reviewed, Interpreted and Dictated by Coy Sofia MD Transcribed by Precious Altman Authenticated and [facility]
[2024-11-28 14:40] LABS: Basophils % 0.3 % (0.1-2.0); Eosinophils # 0.2 K/mm3 (0.0-0.4); Eosinophils % 2.9 % (0.1-12.0); Hematocrit 35.3 % (37.0-47.0); Hemoglobin 11.3 g/dL (12.2-16.2); Lymphocytes # 1.2 K/mm3 (0.7-4.5); Lymphocytes % 16.3 % (10-50); Mean Corpuscular Hemoglobin 30.2 pg (27.0-31.2); Mean Corpuscular Volume 94.4 fl (81-99); Mean Platelet Volume 10.9 fl (7.4-10.4); Monocytes # 0.6 K/mm3 (0.1-1.0); Monocytes % 8.3 % (1.7-9.3); Neutrophils # 5.5 K/mm3 (1.8-7.8); Neutrophils % 71.9 % (37.0-80.0); Platelet Count 205 K/mm3 (142-424); Red Blood Count 3.74 M/mm3 (4.20-5.40); Red Cell Distribution Width 13.5 % (11.5-17.5); White Blood Count 7.6 K/mm3 (4.8-10.8)
[2024-11-28 15:07] LABS: Chloride 105 mmol/L (98-107); Potassium 5.5 mmoL/L (3.5-5.1); Sodium 141 mmol/L (136-145)
[2024-11-28 15:10] LABS: Alanine Aminotransferase 21 U/L (12-78); Albumin/Globulin Ratio 1.1 (1.1-1.8); Alkaline Phosphatase 75 U/L (38-126); Anion Gap 12.5 mEq/L (5-15); Aspartate Amino Transferase 17 U/L (14-36); Bilirubin,Total 0.8 mg/dl (0.2-1.3); Blood Urea Nitrogen 40 mg/dl (7-17); Carbon Dioxide 29 mmol/L (22.0-30.0); Estimated Glomerular Filt Rate 48 ml/min (>60); GFR (African American) 58 ML/MIN (>60); Globulin 3.6 g/dL (1.3-3.2); Total Protein,Serum 7.6 g/dl (6.3-8.2)
[2024-11-28 15:11] LABS: Calcium 9.4 mg/dl (8.4-10.2); Glucose 77 mg/dl (74-100)
[2024-11-28 15:16] LABS: Erythrocyte Sedimentation Rate 63 mm/hr (0-30)
[2024-11-28 15:38] LABS: Thyroid Stimulating Hormone 2.65 uIU/mL (0.465-4.68)
== END 2024-11-28 23:59 | disposition home or self-care (01) ==
LOC: LAB 09:53
PROVIDERS: PCP Internal Medicine; Visit Provider Internal Medicine
DX: S99.911A Unspecified injury of right ankle, initial encounter (principal); M25.512 Pain in left shoulder; G89.29 Other chronic pain; M19.90 Unspecified osteoarthritis, unspecified site; G62.9 Polyneuropathy, unspecified; M35.00 Sjogren syndrome, unspecified; E03.9 Hypothyroidism, unspecified; W19.XXXA Unspecified fall, initial encounter
CPT/HCPCS: 73030; 73610; 80053; 84443; 85025; 85651

== ENCOUNTER 2024-12-01 08:50 | Outpatient (CLI) | payer MEDICARE, SELFPAY ==
--- NOTE | 2024-12-01 08:57 | XR_ITS ---
FINAL REPORT CLINICAL HISTORY: elbow pain COMPARISON: None FINDINGS: RIGHT ELBOW 3 views of the right elbow were obtained. There is no acute fracture or dislocation. The joint spaces are well-preserved. There is no acute soft tissue abnormality. IMPRESSION: No acute abnormality identified. Reviewed, Interpreted and Dictated by Coy Sofia MD Transcribed by Mikayla Dutta Authenticated and [facility]
--- NOTE | 2024-12-01 08:57 | XR_ITS ---
FINAL REPORT CLINICAL HISTORY: elbow pain COMPARISON: None FINDINGS: LEFT ELBOW 3 views of the left elbow were obtained. There is no acute fracture or dislocation. The joint spaces are well-preserved. There is no acute soft tissue abnormality. IMPRESSION: No acute abnormality identified. Reviewed, Interpreted and Dictated by Coy Sofia MD Transcribed by Mikayla Dutta Authenticated and [facility]
--- NOTE | 2024-12-01 08:57 | XR_ITS ---
FINAL REPORT CLINICAL HISTORY: pain COMPARISON: None FINDINGS: RIGHT HUMERUS 2 views of the right humerus were obtained. There is no acute fracture or dislocation. Minimal osteophyte along the inferior margin of the right humeral head. There is no acute soft tissue abnormality. IMPRESSION: Minimal degenerative changes without acute abnormality identified. Reviewed, Interpreted and Dictated by Coy Sofia MD Transcribed by Mikayla Dutta Authenticated and [facility]
--- NOTE | 2024-12-01 08:57 | XR_ITS ---
FINAL REPORT CLINICAL HISTORY: pain COMPARISON: None FINDINGS: LEFT HUMERUS 2 views of the left humerus were obtained. There is no acute fracture or dislocation. The joint spaces are well-preserved. There is no acute soft tissue abnormality. IMPRESSION: No acute abnormality identified. Reviewed, Interpreted and Dictated by Coy Sofia MD Transcribed by Mikayla Dutta Authenticated and [facility]
== END 2024-12-01 23:59 | disposition home or self-care (01) ==
PROVIDERS: PCP Internal Medicine; Visit Provider Physician Assistant Surgical
DX: M25.521 Pain in right elbow (principal); M25.522 Pain in left elbow; M89.8X2 Other specified disorders of bone, upper arm
CPT/HCPCS: 73060; 73080

== ENCOUNTER 2024-12-15 09:59 | Outpatient (CLI) | payer MEDICARE, SELFPAY ==
--- NOTE | 2024-12-15 10:09 | XR_ITS ---
FINAL REPORT CLINICAL HISTORY: RT ankle FX 3 weeks ago no surgery COMPARISON: 11/28/2024 FINDINGS: RIGHT ANKLE: Three views show a transverse fracture of the medial malleolus with 4 mm of displacement, similar to the prior exam of November 28. Osteopenia is present. The ankle mortise is intact. IMPRESSION: Stable fracture of the medial malleolus when compared to the prior exam of 11/28/2024. Reviewed, Interpreted and Dictated by Dameon Falk MD Transcribed by Shilpa Espinal Authenticated and [facility]
--- NOTE | 2024-12-15 10:09 | XR_ITS ---
FINAL REPORT TECHNIQUE: Left elbow 4 views CLINICAL HISTORY: LT elbow FX 2 weeks ago, no surgery COMPARISON: 12/01/2024 FINDINGS: LEFT ELBOW: 4 views of the left elbow were obtained. There is a mildly displaced radial neck fracture, slightly worse than seen on the prior exam of 12/01/2024. Osteopenia is present. IMPRESSION: Mild further displacement of the previously noted radial neck fracture when compared to the prior exam of 12/01/2024. Reviewed, Interpreted and Dictated by Dameon Falk MD Transcribed by Shilpa Espinal Authenticated and [facility]
[2024-12-15 14:23] LABS: Chloride 103 mmol/L (98-107); Potassium 4.9 mmoL/L (3.5-5.1); Sodium 137 mmol/L (136-145)
[2024-12-15 14:26] LABS: Anion Gap 11.9 mEq/L (5-15); Blood Urea Nitrogen 39 mg/dl (7-17); Calcium 9.4 mg/dl (8.4-10.2); Carbon Dioxide 27 mmol/L (22.0-30.0); Estimated Glomerular Filt Rate 53 ml/min (>60); GFR (African American) 65 ML/MIN (>60); Glucose 87 mg/dl (74-100)
== END 2024-12-15 23:59 | disposition home or self-care (01) ==
LOC: RAD 10:00
PROVIDERS: PCP Internal Medicine; Visit Provider Physician Assistant Surgical
DX: S52.132A Displaced fracture of neck of left radius, initial encounter for closed fracture (principal); S82.51XA Displaced fracture of medial malleolus of right tibia, initial encounter for closed fracture; R94.4 Abnormal results of kidney function studies; E87.5 Hyperkalemia
CPT/HCPCS: 73080; 73610; 80048

== ENCOUNTER 2025-01-03 09:45 | Outpatient (CLI) | payer MEDICARE, SELFPAY ==
--- NOTE | 2025-01-03 09:51 | XR_ITS ---
FINAL REPORT CLINICAL HISTORY: fracture f/u COMPARISON: 12/15/2024 FINDINGS: RIGHT ANKLE 3 views of the right ankle were obtained. There is a transverse fracture of the medial malleolus without bony union. There is up to 4 mm of separation of the fracture fragments which is unchanged. There is a nondisplaced, oblique fracture of the distal fibula and lateral malleolus which is newly evident. However, proximal component has adjacent sclerosis consistent with some healing. There is an old, small avulsion fracture fragment along the tip of the lateral malleolus. Mortise is intact. IMPRESSION: Stable, transverse fracture of the tip of the medial malleolus with 4 mm of displacement. Newly seen, oblique fracture of the distal fibula and lateral malleolus. Reviewed, Interpreted and Dictated by Dameon Falk MD Transcribed by Munira Manning Authenticated and [facility]
--- NOTE | 2025-01-03 09:51 | XR_ITS ---
FINAL REPORT CLINICAL HISTORY: fracture f/u FINDINGS: 3 views of the left elbow were obtained and compared to prior exam from 12/15/2024. There is a mildly displaced radial neck fracture. A radiolucent gap is seen at the fracture margin, similar to prior exam. No callus formation is seen. There are mild degenerative changes. Bones are osteopenic. IMPRESSION: No further healing of radial neck fracture. Reviewed, Interpreted and Dictated by Dameon Falk MD Transcribed by Munira Manning Authenticated and [facility]
== END 2025-01-03 23:59 | disposition home or self-care (01) ==
LOC: RAD 09:46
PROVIDERS: PCP Internal Medicine; Visit Provider Physician Assistant Surgical
DX: M25.571 Pain in right ankle and joints of right foot (principal); S82.51XA Displaced fracture of medial malleolus of right tibia, initial encounter for closed fracture; M25.522 Pain in left elbow; S52.132A Displaced fracture of neck of left radius, initial encounter for closed fracture
CPT/HCPCS: 73080; 73610

== ENCOUNTER 2025-01-24 10:11 | Outpatient (CLI) | payer MEDICARE, SELFPAY ==
--- NOTE | 2025-01-24 10:14 | XR_ITS ---
FINAL REPORT CLINICAL HISTORY: right ankle fx COMPARISON: 01/03/2025 FINDINGS: RIGHT ANKLE 3 views of the right ankle were obtained. There has been no change in fracture of the medial malleolus or nondisplaced fracture of the lateral malleolus. There is degenerative joint disease. There is no acute fracture or dislocation. IMPRESSION: Stable fractures as above. Reviewed, Interpreted and Dictated by Erlinda Morrison MD Transcribed by Munira Manning Authenticated and [facility]
--- NOTE | 2025-01-24 10:14 | XR_ITS ---
FINAL REPORT CLINICAL HISTORY: Left elbow fx COMPARISON: 01/03/2025 FINDINGS: 3 views of the elbow were obtained. There has been no significant change in left radial neck fracture. No new fracture is identified. There is no dislocation. Soft tissues are unremarkable. IMPRESSION: No significant change in left radial neck fracture. Reviewed, Interpreted and Dictated by Erlinda Morrison MD Transcribed by Munira Manning Authenticated and [facility]
== END 2025-01-24 23:59 | disposition home or self-care (01) ==
LOC: RAD 10:12
PROVIDERS: PCP Internal Medicine; Visit Provider Physician Assistant Surgical
DX: M25.522 Pain in left elbow (principal); S52.132D Displaced fracture of neck of left radius, subsequent encounter for closed fracture with routine healing; M25.571 Pain in right ankle and joints of right foot; S82.51XD Displaced fracture of medial malleolus of right tibia, subsequent encounter for closed fracture with routine healing
CPT/HCPCS: 73080; 73610

== ENCOUNTER 2025-02-09 13:22 | Outpatient (CLI) | payer MEDICARE, SELFPAY ==
--- NOTE | 2025-02-09 13:30 | XR_ITS ---
FINAL REPORT CLINICAL HISTORY: left wrist pain, swelling COMPARISON: None FINDINGS: LEFT WRIST THREE VIEW FINDINGS: Three views show no evidence of an acute, displaced fracture or dislocation of the visualized bony architecture. The joint spaces appear normal. Osteopenia is present. IMPRESSION: Unremarkable exam. Reviewed, Interpreted and Dictated by Dameon Falk MD Transcribed by Shilpa Espinal Authenticated and . [facility]
== END 2025-02-09 23:59 | disposition home or self-care (01) ==
LOC: RAD 13:23
PROVIDERS: PCP Internal Medicine; Visit Provider Physician Assistant
DX: M25.532 Pain in left wrist (principal)
CPT/HCPCS: 73110

== ENCOUNTER 2025-02-14 12:37 | Outpatient (CLI) | payer MEDICARE, SELFPAY ==
--- NOTE | 2025-02-14 12:39 | XR_ITS ---
FINAL REPORT CLINICAL HISTORY: Right back pain, history of falls COMPARISON: None FINDINGS: AP and lateral views of the lumbar spine were obtained. There is no prior exam for comparison. No acute fracture is identified. There is grade 1 anterolisthesis of L4 on L5. Mild scoliosis is present as well. Vertebral body height is preserved. Multilevel degenerative disc space narrowing is identified, most prominent at the L3-4 and L4-5 levels. No acute paraspinal abnormality. IMPRESSION: Grade 1 anterolisthesis L4 on L5 with mild lumbar scoliosis. Multilevel degenerative disc disease as described. Reviewed, Interpreted and Dictated by Erlinda Morrison MD Transcribed by Shilpa Espinal Authenticated and [facility]
--- NOTE | 2025-02-14 12:39 | XR_ITS ---
FINAL REPORT CLINICAL HISTORY: Left neck pain, history of falls COMPARISON: None FINDINGS: CERVICAL SPINE 5 views were obtained. There is no acute fracture. There is no malalignment. There is multilevel degenerative disc disease present, most pronounced at the C5-6 level. Note is made of fullness in the right hilum, recommend follow-up PA and lateral chest x-rays for further evaluation. IMPRESSION: Multilevel degenerative disc disease, most pronounced at the C5-6 level. Fullness in the right hilum, recommend PA and lateral views of the chest for further evaluation. Reviewed, Interpreted and Dictated by Erlinda Morrison MD Transcribed by Shilpa Espinal Authenticated and [facility]
== END 2025-02-14 23:59 | disposition home or self-care (01) ==
LOC: RAD 12:38
PROVIDERS: PCP Internal Medicine; Visit Provider Internal Medicine
DX: M54.2 Cervicalgia (principal); M79.18 Myalgia, other site
CPT/HCPCS: 72050; 72100

== ENCOUNTER 2025-02-21 10:22 | Outpatient (CLI) | payer MEDICARE, SELFPAY ==
--- NOTE | 2025-02-21 10:27 | XR_ITS ---
FINAL REPORT CLINICAL HISTORY: right ankle fx COMPARISON: 01/24/2025 FINDINGS: RIGHT ANKLE 3 views of the right ankle were obtained. Well corticated ununited fragment inferior to the medial malleolus measuring up to 13 mm. There is a healing oblique fracture of the distal fibula with fracture line less visible on today's exam. The mortise is intact. Visualized joint spaces are normally aligned. Mild soft tissue edema is noted. IMPRESSION: Healing fibular fracture as above. Reviewed, Interpreted and Dictated by Coy Sofia MD Transcribed by Precious Altman Authenticated and [facility]
--- NOTE | 2025-02-21 10:27 | XR_ITS ---
FINAL REPORT CLINICAL HISTORY: left wrist pain COMPARISON: 02/09/2025 FINDINGS: LEFT WRIST Three views demonstrate a questionable lucency of the medial portion of the distal radius extending to the articular surface. There is also a 4 mm ossific density over the dorsal aspect of the wrist which may be related to prior triquetral avulsion. The visualized joint spaces are normally aligned. The soft tissues are unremarkable. IMPRESSION: Irregularities as above. Consider MRI for further evaluation. Reviewed, Interpreted and Dictated by Coy Sofia MD Transcribed by Precious Altman Authenticated and [facility]
--- NOTE | 2025-02-21 10:27 | XR_ITS ---
FINAL REPORT CLINICAL HISTORY: left elbow pain COMPARISON: 01/24/2025 FINDINGS: LEFT ELBOW 3 views were obtained. Mildly displaced transverse fracture through the radial neck again noted. There is no joint effusion. The joint spaces are intact. There is no soft tissue abnormality. IMPRESSION: Stable radial neck fracture. Reviewed, Interpreted and Dictated by Coy Sofia MD Transcribed by Precious Altman Authenticated and [facility]
--- NOTE | 2025-02-21 10:27 | XR_ITS ---
FINAL REPORT TECHNIQUE: Chest PA & Lateral CLINICAL HISTORY: Fullness of right hilum on C-spine x-rays COMPARISON: 02/12/2022 FINDINGS: 2 views of the chest were performed. The heart size is normal. The mediastinum is within normal limits. There is no acute cardiopulmonary process. There are no pleural effusions. There is no pneumothorax. The bony thorax appears intact. IMPRESSION: No acute cardiopulmonary process. Reviewed, Interpreted and Dictated by Coy Sofia MD Transcribed by Precious Altman Authenticated and [facility]
== END 2025-02-21 23:59 | disposition home or self-care (01) ==
LOC: RAD 10:24
PROVIDERS: PCP Internal Medicine; Visit Provider Internal Medicine
DX: R91.8 Other nonspecific abnormal finding of lung field (principal); S82.891A Other fracture of right lower leg, initial encounter for closed fracture; S52.132A Displaced fracture of neck of left radius, initial encounter for closed fracture; S42.402A Unspecified fracture of lower end of left humerus, initial encounter for closed fracture
CPT/HCPCS: 71046; 73080; 73110; 73610

== ENCOUNTER 2025-02-27 08:49 | Outpatient (RCR) | payer MEDICARE, SELFPAY ==
--- NOTE | 2025-02-27 09:58 | HMH.PTOPEV ---
PT Outpatient Evaluation Rehab PT Outpatient Evaluation Start: 02/27/25 09:39 Freq: Status: Active Protocol: Document 02/27/25 09:40 BEATRIZ (Rec: 02/27/25 09:57 BEATRIZ [id number]) E-signed By Jose Muñoz, PT Outpatient Therapy Subjective History Subjective History The pt is a 79 yof who is referred to [facility] outpatient PT with complaints of left sided neck and upper back pain. The pt reports that she had a fall in early November, in which she fractured her R ankle. The pt reports that she was in a boot for a couple of months but is not having any trouble with her foot. She reports that a few weeks later, she had a fall in which she fractured both of her arms. She reports that her arms are doing better, but shortly after the fall, her upper back and neck began to hurt very severely. She reports that the left side of her neck feels extremely tight. She also reports that it feels like there is a knot in her upper back on the L side. Pt reports that she had an X-ray done, which showed degeneration. The pt reports that soft tissue massage makes it feel better. She reports that she lives alone. PMH: Hypothyroidism Occupation: Retired New diagnosis of cancer in past 12 No months? Chief Complaint Pain,Stiff Symptom Type Ache,Sharp Symptoms Relieved By Prescription Meds Symptoms Aggravated By Sitting,Standing,Bending/ Stooping,Physical Activity, Twisting,Walking Prior Functional Limitations None Current Functional Limitations Reaching,Lifting,Housework, Dressing,Sleeping,Standing Symptom Description Constant and Continuous Level of pain today (0-10) 8 Pain scale - at its best (0-10) 8 Pain scale - at its worst (0-10) 10 Cervical Eval Palpation Cervical Muscles L Cervical Paraspinal,L CT Junction,L Upper Trapezius Cervical/Thoracic Palpation Findings Tenderness,Trigger Point, Muscle Guarding Posture Head/C-Spine Posture Sitting Position Flexed Head/C-Spine Posture Standing Position Flexed Flexibility Deficits Upper Trapezius Muscle Length (L) Moderate Tightness Pectoralis Major Muscle Length (R) Moderate Tightness,(L) Moderate Tightness Pectoralis Minor Muscle Length (R) Moderate Tightness,(L) Moderate Tightness Passive Joint Mobility Cervical PIVM Dec: L C5/6 L C6/7 L C7/T1 AROM Cervical Spine Extension Active Range of 10 Motion (degrees) Cervical Spine Flexion Active Range of 45 Motion (degrees) Cervical Spine Right Lateral Flexion 10 Active Range of Motion (degrees) Cervical Spine Left Lateral Flexion 20 Active Range of Motion (degrees) Cervical Spine Right Rotation Active 15 Range of Motion (degrees) Cervical Spine Left Rotation Active 25 Range of Motion (degrees) MMT Bilateral Deltoid (C5) 3 Fair Biceps Brachii Strength Grade 3+ Fair+ Wrist Extension Strength Grade 3+ Fair+ Triceps Brachii Strength Grade 3+ Fair+ Wrist Flexion Strength Grade 4 Good Extensor Pollicis Longus Strength Grade 5 Normal Finger Abduction Strength Grade 5 Normal DTR Rt Biceps 1+ Lt Biceps 1+ Rt Brachioradialis 1+ Lt Brachioradialis 1+ Rt Triceps 1+ Lt Triceps 1+ Special Test C-Spine Foraminal Compression (Spurling) Negative Left,Negative Right Test C-spine Verterbral Accessory Movements Left P/A [place] that Elicit Symptoms C-Spine Foraminal Distraction Test Negative C-Spine Compression Test Negative Left C-Spine Swallowing Test Negative Left Shoulder Abduction Relief Test Negative Left Shoulder Brachial Plexus Stretch Test Negative Left Neck Disability Index Neck Disability Index Section 1: Pain Intensity The pain is moderate at the moment Section 2: Personal Care (washing, I can look after myself dressing, etc.) normally but it causes extra pain Section 3: Lifting Pain prevents me from lifting heavy weights, but I can manage light to Section 4: Reading I can read as much as I want to with slight pain in my neck Section 5: Headaches I have moderate headaches, which come infrequently Section 6: Concentration I can concentrate fully when I want to with no difficulty Section 7: Work I can do most of my usual work , but no more Section 8: Driving I can drive my car as long as I want with slight pain in my neck Section 9: Sleeping My sleep is greatly disturbed (3-5 hrs sleepless) Section 10: Recreation I am able to engage in a few of my usual recreation activities because NDI Score 19 Outpatient Therapy Assessment Impairments Problems/Impairmments Palpation Tenderness,Impaired Range of Motion,Impaired Strength,Impaired Dressing, Impaired Household Care, Subjective C/O Pain Prognosis Rehab Potential Good Comment w HEP compliance Clinical Impression Consistent with Diagnosis Yes Additional details: Neck and thoracic spine pain with mobility deficits. Short Term Goals Number of Weeks 4 Decreased Palpation Tenderness Yes: 2-3/4 to TTP Assessment Above Increase Range of Motion Yes: 50% WNL of CROM Increase Strength Yes: 3+/5 to L shoulder Improve Neck Disability Index Score Yes: <14 Decrease Subjective C/O Pain Yes: 5/10 with above assessment Patient to be Ind w/ HEP Yes Rental Sales Associate Goals Number of Weeks 8 Decreased Palpation Tenderness Yes: 0-1/4 to TTP assessment above Increase Range of Motion Yes: 75% WNL CROM Increase Strength Yes: 4/5 to L shoulder Improve Ability to Dress Self Yes: Able to dress self without increasing pain Improve Ability For Household Care Yes: Normal manager wound without increasing pain Improve Tolerance to 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 Improve Neck Disability Index Score Yes: <9 Decrease Subjective C/O Pain Yes: 2-10 with above assessment Patient to be Ind w/ Advanced HEP Yes Outpatient Therapy Plan of Care Treatment Plan May Include Therapeutic Exercise Including Home Yes Exercise Program Manual Therapy Techniques Yes Neuromuscular Re-education Yes Therapeutic Activities to Return to Yes Previous Functional/Work Level Gait Training Yes ADL/Self Care Education Yes Dry Needling Yes Thermal Modalities Yes Electrical Stimulation Yes Manual Lymphatic Drainage Yes Eval/Re-Eval Yes Frequency Times per week 2 Duration Number of Weeks 8 Addendums This patient is a candidate for social No or vocational rehab? Patient/Guardian verbally acknowledges Yes understanding of treatment program and consents to further treatment? Patient/Guardian verbally acknowledges Yes understanding of diagnosis, prognosis and goals for treatment? Eval Complexity PT Charges 72860 - Moderate Complexity Shoulder/Elbow Eval Shoulder Objective Measurements Elbow Objective Measurements PHYSICIAN CERTIFICATION: I certify the specified therapy services for aYni Hernandez are required, authorized, and reviewed every 30 days.
== END 2025-02-27 23:59 | disposition home or self-care (01) ==
LOC: PT 08:49
PROVIDERS: PCP Internal Medicine; Visit Provider Internal Medicine
DX: M54.2 Cervicalgia (principal); M79.18 Myalgia, other site
CPT/HCPCS: 97163

== ENCOUNTER 2025-03-09 08:00 | Outpatient (RCR) | payer MEDICARE, SELFPAY | END 2025-03-09 23:59 | disposition home or self-care (01) | LOC: PT 08:00 | PROVIDERS: PCP Internal Medicine; Visit Provider Internal Medicine | DX: M79.18 Myalgia, other site (principal); M54.2 Cervicalgia | CPT/HCPCS: 97014; 97110; 97140; G0283 ==

== ENCOUNTER 2025-04-27 12:46 | Outpatient (CLI) | payer MEDICARE, SELFPAY ==
--- NOTE | 2025-04-27 13:00 | MR_ITS ---
FINAL REPORT TECHNIQUE: Multiplanar MR without contrast CLINICAL HISTORY: Neck pain ON LEFT SIDE FINDINGS: Limited images of the posterior fossa are unremarkable. Alignment is normal. Cervical spinal cord shows normal signal and contour. C2-3: Minimal annular disc bulge without canal stenosis. C3-4: Mild to moderate annular disc bulge, asymmetric to the left. Mild central canal stenosis. Moderate bilateral neuroforaminal narrowing. C4-5: Moderate size left paracentral disc osteophyte complex. Left lateral canal stenosis with mass effect on the left spinal cord and left C5 nerve root. Left neuroforaminal narrowing. C5-6: Mild annular disc bulge. Mild canal stenosis and mild neuroforaminal narrowing. C6-7: Mild annular disc bulge without canal stenosis or neuroforaminal narrowing. C7-T1: Unremarkable IMPRESSION: Multilevel degenerative change, most pronounced left side C3-4 and C4-5. Reviewed, Interpreted and Dictated by Dameon Falk MD Transcribed by Brigette Haile Authenticated and [facility]
== END 2025-04-27 23:59 | disposition home or self-care (01) ==
PROVIDERS: PCP Internal Medicine; Visit Provider Internal Medicine
DX: M47.812 Spondylosis without myelopathy or radiculopathy, cervical region (principal)
CPT/HCPCS: 72141

== ENCOUNTER 2025-06-28 11:45 | Outpatient (CLI) | payer MEDICARE, SELFPAY ==
[2025-06-28 13:30] LABS: Hematocrit 34.6 % (37.0-47.0); Hemoglobin 11.2 g/dL (12.2-16.2); Immature Granulocytes % 0.4 %; Mean Corpuscular HGB Conc 32.4 g/dL (31.8-35.4); Mean Corpuscular Hemoglobin 29.8 pg (27.0-31.2); Mean Corpuscular Volume 92.0 fl (81-99); Nucleated Red Blood Cells % 0 %; Platelet Count 202 K/mm3 (142-424); Red Blood Count 3.76 M/mm3 (4.20-5.40); Red Cell Distribution Width-SD 46.8 fL; White Blood Count 5.4 K/mm3 (4.8-10.8)
[2025-06-28 14:12] LABS: Albumin Level 3.9 g/dl (3.5-5.0); Chloride 107 mmol/L (98-107); Potassium 5.3 mmoL/L (3.5-5.1); Sodium 141 mmol/L (136-145)
[2025-06-28 14:15] LABS: Alanine Aminotransferase 14 U/L (12-78); Albumin/Globulin Ratio 1.1 (1.1-1.8); Alkaline Phosphatase 65 U/L (38-126); Anion Gap 11.3 mEq/L (5-15); Aspartate Amino Transferase 14 U/L (14-36); Bilirubin,Total 0.8 mg/dl (0.2-1.3); Blood Urea Nitrogen 32 mg/dl (7-17); Carbon Dioxide 28 mmol/L (22.0-30.0); Cholesterol 196 mg/dl (140-200); Creatinine,Serum 1.20 mg/dl (0.52-1.04); Estimated Glomerular Filt Rate 43 ml/min (>60); GFR (African American) 52 ML/MIN (>60); Globulin 3.5 g/dL (1.3-3.2); Total Protein,Serum 7.4 g/dl (6.3-8.2); Triglycerides 135 mg/dl (30-150)
[2025-06-28 14:16] LABS: Calcium 9.2 mg/dl (8.4-10.2); Glucose 86 mg/dl (74-100); HDL Cholesterol 39 mg/dl (40-60)
[2025-06-28 14:45] LABS: Thyroid Stimulating Hormone 1.26 uIU/mL (0.465-4.68)
== END 2025-06-28 23:59 | disposition home or self-care (01) ==
LOC: LAB.DROPOF 06-30 11:12
PROVIDERS: PCP Internal Medicine; Visit Provider Internal Medicine
DX: G62.9 Polyneuropathy, unspecified (principal); K21.9 Gastro-esophageal reflux disease without esophagitis; N18.9 Chronic kidney disease, unspecified; M15.0 Primary generalized (osteo)arthritis; E78.5 Hyperlipidemia, unspecified; E03.9 Hypothyroidism, unspecified
CPT/HCPCS: 80053; 80061; 84443; 85025

== ENCOUNTER 2025-08-28 16:31 | Outpatient (CLI) | payer MEDICARE, SELFPAY ==
--- NOTE | 2025-08-28 16:36 | XR_ITS ---
PROCEDURE INFORMATION: Exam: XR Left Shoulder Exam date and time: 08/28/2025 4:38 PM Age: 80 years old Clinical indication: Injury or trauma; Fall; Other: Pain; Additional info: Left shoulder injury TECHNIQUE: Imaging protocol: Radiologic exam of the left shoulder. Views: 2 or more views. COMPARISON: CR XR SHOULDER LT MIN 2V 11/28/2024 10:15 AM FINDINGS: Bones/joints: Impacted fracture of the distal clavicle (about 8 mm impaction of fracture fragments). No other acutely displaced skeletal fractures. No joint dislocation. No aggressive osseous lesions. Soft tissues: No acute findings in the included segments of the chest. IMPRESSION: Impacted fracture of the distal clavicle (about 8 mm impaction of fracture fragments).
--- NOTE | 2025-08-28 16:36 | XR_ITS ---
PROCEDURE INFORMATION: Exam: XR Chest Exam date and time: 08/28/2025 4:38 PM Age: 80 years old Clinical indication: Injury or trauma; Fall; Other: Pain; Additional info: Left chest contusion TECHNIQUE: Imaging protocol: Radiologic exam of the chest. Views: 2 views. COMPARISON: CR XR CHEST 2V 02/21/2025 10:35 AM FINDINGS: Airway: Airways are patent. Lungs: Lungs are clear. Pleural spaces: No pleural effusions or pneumothorax. Heart/Mediastinum: No cardiomegaly. Bones/joints: Partially seen impacted fracture of the left distal clavicle. No other acutely displaced skeletal fractures. No joint dislocation. Mild multilevel degenerative changes of the spine. IMPRESSION: Partially seen impacted fracture of the left distal clavicle. Please review shoulder films performed concomitantly.
--- NOTE | 2025-08-28 16:36 | XR_ITS ---
PROCEDURE INFORMATION: Exam: XR Left Clavicle, Complete Exam date and time: 08/28/2025 4:38 PM Age: 80 years old Clinical indication: Injury or trauma; Fall; Other: Pain; Additional info: Injury to left clavicle TECHNIQUE: Imaging protocol: Radiologic exam of the left clavicle. Complete exam. Views: Any number of views. COMPARISON: CR XR CLAVICLE LT 08/28/2025 4:38 PM FINDINGS: Bones/joints: Displaced and overriding fracture of the distal left clavicle (about 6 mm dorsal displacement and 8 mm overriding). No other acutely displaced skeletal fractures. No joint dislocation. No aggressive osseous lesions. Soft tissues: No acute findings in the included segments of the chest. Mild supraclavicular swelling. IMPRESSION: Displaced and overriding fracture of the distal left clavicle (about 6 mm dorsal displacement and 8 mm overriding).
== END 2025-08-28 23:59 | disposition home or self-care (01) ==
LOC: RAD 16:33
PROVIDERS: PCP Internal Medicine; Visit Provider Internal Medicine
DX: S42.032A Displaced fracture of lateral end of left clavicle, initial encounter for closed fracture (principal); S20.219A Contusion of unspecified front wall of thorax, initial encounter; R55 Syncope and collapse; W19.XXXA Unspecified fall, initial encounter
CPT/HCPCS: 71046; 73000; 73030

== ENCOUNTER 2025-09-05 14:34 | Outpatient (CLI) | payer MEDICARE, SELFPAY ==
[2025-09-05 15:53] LABS: Hematocrit 36.2 % (37.0-47.0); Hemoglobin 11.1 g/dL (12.2-16.2); Immature Granulocytes % 0.3 %; Mean Corpuscular HGB Conc 30.7 g/dL (31.8-35.4); Mean Corpuscular Hemoglobin 29.3 pg (27.0-31.2); Mean Corpuscular Volume 95.5 fl (81-99); Nucleated Red Blood Cells % 0 %; Platelet Count 232 K/mm3 (142-424); Red Blood Count 3.79 M/mm3 (4.20-5.40); Red Cell Distribution Width-SD 46.1 fL; White Blood Count 6.4 K/mm3 (4.8-10.8)
[2025-09-05 16:44] LABS: Free T4 (Free Thyroxine) 1.01 ng/dl (0.78-2.19)
[2025-09-05 18:09] LABS: Albumin Level 4.6 g/dl (3.5-5.0); Chloride 106 mmol/L (98-107); Sodium 141 mmol/L (136-145)
[2025-09-05 18:11] LABS: Bilirubin,Unconjugated 0.6 mg/dL (0.0-1.1); Blood Urea Nitrogen 37 mg/dl (7-17); Creatinine,Serum 1.40 mg/dl (0.52-1.04); Estimated Glomerular Filt Rate 36 ml/min (>60); GFR (African American) 44 ML/MIN (>60)
[2025-09-05 18:12] LABS: Alanine Aminotransferase 17 U/L (12-78); Alkaline Phosphatase 104 U/L (38-126); Aspartate Amino Transferase 14 U/L (14-36); Bilirubin,Direct 0.1 mg/dl (0.0-0.4); Bilirubin,Indirect 0.5 mg/dL (0.0-0.9); Bilirubin,Total 0.6 mg/dl (0.2-1.3); Calcium 9.2 mg/dl (8.4-10.2); Carbon Dioxide 29 mmol/L (22.0-30.0); Cholesterol 189 mg/dl (140-200); Glucose 98 mg/dl (74-100); HDL Cholesterol 41 mg/dl (40-60); Magnesium 2.2 mg/dl (1.6-2.3); Total Protein,Serum 7.6 g/dl (6.3-8.2); Triglycerides 134 mg/dl (30-150)
[2025-09-05 18:35] LABS: Anion Gap 12.2 mEq/L (5-15); Potassium 6.2 mmoL/L (3.5-5.1)
[2025-09-05 18:43] LABS: Thyroid Stimulating Hormone 1.57 uIU/mL (0.465-4.68)
== END 2025-09-05 23:59 | disposition home or self-care (01) ==
LOC: LAB 14:36
PROVIDERS: PCP Internal Medicine; Visit Provider Internal Medicine
DX: I12.9 Hypertensive chronic kidney disease with stage 1 through stage 4 chronic kidney disease, or unspecified chronic kidney disease (principal); N18.9 Chronic kidney disease, unspecified; E78.5 Hyperlipidemia, unspecified; R55 Syncope and collapse; R94.31 Abnormal electrocardiogram [ECG] [EKG]; E87.5 Hyperkalemia; E03.9 Hypothyroidism, unspecified; M54.9 Dorsalgia, unspecified
CPT/HCPCS: 36415; 80048; 80061; 80076; 83735; 84439; 84443; 85025; 93270; 93272

== ENCOUNTER 2025-09-07 14:00 | Outpatient (CLI) | payer MEDICARE, SELFPAY ==
[2025-09-07 12:00] LABS: Potassium 5.8 mmoL/L (3.5-5.1)
== END 2025-09-07 23:59 | disposition home or self-care (01) ==
LOC: LAB.DROPOF 09-18 12:21
PROVIDERS: PCP Internal Medicine; Visit Provider Internal Medicine
DX: E87.5 Hyperkalemia (principal)
CPT/HCPCS: 84132

== ENCOUNTER 2025-09-12 10:54 | Outpatient (CLI) | payer MEDICARE, SELFPAY ==
--- NOTE | 2025-09-12 11:15 | CA_ITS ---
FINAL REPORT CLINICAL HISTORY: Sycope, Dizziness, HTN COMPARISON: None FINDINGS: RIGHT CAROTID: CCA PSV -89 cm/sec ICA PSV -108 cm/sec ICA/CCA PSV ratio -1.2. Comments: Moderate plaque disease is noted. LEFTCAROTID: CCA PSV -65. cm/sec ICA PSV -143. cm/sec ICA/CCA PSV ratio -2.25. Comments: Moderate plaque disease is noted. Antegrade flow is seen within the vertebral arteries. IMPRESSION: Carotid stenosis classified less than 50% Reviewed, Interpreted and Dictated by Dameon Falk MD Transcribed by Shilpa Espinal Authenticated and [facility]
--- NOTE | 2025-09-12 13:00 | CA_ITS ---
APPROVED REPORT EXAM: Comprehensive 2D, Doppler, and color-flow Echocardiogram [employer]: BELKIS Garay, RVS Ht: 5 ft 3 in Wt: 142lbs BSA: 1.67 BP: 135/89 mmHg Indications: Syncope, Dizziness, Murmur, HTN, Hypothroidism 2D Dimensions Left Atrium 3.95 cm LA Volume 46.90 mL LA Volume Index 28.869169 mL/m2 (M/F) 16-34 M-Mode Dimensions RVDd 2.84 cm (0.9-2.6) LA Diam 4.36 cm (1.9-4.0) LVDd 4.69 cm (3.5-5.7) LVDs 2.98 cm (3.5-5.7) IVSd 1.02 cm (0.6-1.1) PWd 0.86 cm (0.6-1.1) EF (Teich) 66.20% EPSs 0.44 cm FS 36.50% EDV (Teich) 101.90 mL TAPSE 1.82 (<1.7) ESV (Teich) 34.40 mL LV Diastology E Decel Time 370 (160-240 msec) E/A Ratio 0.92 MED A' 8.20 cm/s LAT A' 11.70 cm/s Aortic Valve ROBERT Index 1.13 cm2/m2 AoV Peak Robb. 153.0 (50-130 cm/s) AO Peak GR. 9.30 mmHg AO Mean GR. 4.50 (<5 mmHg) AO VTI 33.4 (18-25 cm) ROBERT (VTI) 1.93 (2.5-4.5 cm2) Mitral Valve MV A Velocity 77.0 (40-130 cm/s) E/A Ratio 0.92 Pulmonary Valve PV Peak Velocity 59.0 (50-150 cm/s) ME End VMAX 75.0 cm/s Tricuspid Valve TR P. Velocity 246.00 cm/s RAP Estimate 10.00 mmHg RVSP 34.20 mmHg Left Ventricle The left ventricle is normal size. Left ventricular systolic function is normal. The left ventricular ejection fraction is within the normal range. There is increased left ventricular wall thickness. There is normal LV segmental wall motion. The left ventricular diastolic function is normal. LVEF is 55% Right Ventricle The right ventricle is mildly dilated. The right ventricular systolic function is normal. Atria Left atrium is mildly dilated. Right atrium is mildly dilated. There is no color Doppler evidence of interatrial shunt. Aortic Valve The aortic valve is mildly thickened. There is no hemodynamically significant aortic valvular stenosis. Trace aortic regurgitation is present. Mitral Valve The mitral valve is normal in structure. No evidence of mitral valve stenosis. Mild mitral regurgitation is present. Tricuspid Valve The tricuspid valve leaflets are thin and pliable. Mild tricuspid regurgitation. RVSP is 20-25 mmHg. Pulmonic Valve The pulmonary valve is grossly normal in structure. Trace pulmonic valve regurgitation is present. Great Vessels The aortic root is normal in size. IVC is normal in size and collapses >50% with inspiration. Pericardium Trivial pericardial effusion along the RV free wall. No echo indications of tamponade. Other Information Study Quality: Fair Conclusion Normal biventricular systolic function. Mild RV dilation. Mild biatrial dilation. Mild MR, mild TR. Trivial pericardial effusion along the RV free wall. No echo indications of tamponade. Electronically signed by : Celsa Way MD 09/19/2025 01:23:50
== END 2025-09-12 23:59 | disposition home or self-care (01) ==
LOC: RT 10:56
PROVIDERS: PCP Internal Medicine; Visit Provider Internal Medicine
DX: I08.1 Rheumatic disorders of both mitral and tricuspid valves (principal); I13.10 Hypertensive heart and chronic kidney disease without heart failure, with stage 1 through stage 4 chronic kidney disease, or unspecified chronic kidney disease; I65.23 Occlusion and stenosis of bilateral carotid arteries; N18.9 Chronic kidney disease, unspecified; E03.9 Hypothyroidism, unspecified; R55 Syncope and collapse; R42 Dizziness and giddiness; R94.31 Abnormal electrocardiogram [ECG] [EKG]; E78.5 Hyperlipidemia, unspecified; E87.5 Hyperkalemia; M54.9 Dorsalgia, unspecified
CPT/HCPCS: 93306; 93880

== ENCOUNTER 2025-09-26 11:40 | Outpatient (CLI) | payer MEDICARE, SELFPAY ==
--- NOTE | 2025-09-26 | CA_ITS ---
APPROVED REPORT Exam: Pharmacologic Technologist: Ijeoma De La O Ht: 5 ft 3 in Wt: 143 lbs BSA: 1.68 m2 HR: 61 bpm BP: 187/81 mmHg Indications: Syncope, abnormal ECG Stress Test Details HR Resting HR: 61 bpm Max Heart Rate (APMHR): 140.163203 bpm Target HR (85% APMHR): 119.209924 bpm Recovery HR: 87 bpm BP Resting BP: 187.0/81.0 mmHg Max BP: 187.0/81.0 mmHg Recovery BP: 177.0/90.0 mmHg ECG Stress ECG Conclusion During lexiscan pt experinced no symptoms. PACs and PVCs noted.Less than 0.5mm upsloping ST segment changes. T wave inversion 2 and 3 with isolation to baseline prior to discharge. Nondiagnsotic ECG/lexiscan Electronically signed by : Celsa Way MD 10/01/2025 22:25:58
--- NOTE | 2025-09-26 12:00 | NM_ITS ---
APPROVED REPORT Exam: Nuclear Stress Test Indication: syncope..fatigue Patient Location: Outpatient Stress Tech: Ijeoma Jairon RIOS Tech:Geetha GrijalvaPEGGY RT(R)(N) Ht: 5 ft 3 in Wt: 140 lbs Bra Size: 36c HR: 65 bpm BP: 187/81 mmHg BSA: 1.66 m2 TID: 1.14 BMI: 24.7 History: syncope..fatigue Procedure: Patient received 0.4 mg of intravenous Lexiscan, resting heart rate 65 bpm, resting blood pressure 187/81 mmHg, with Lexiscan maximum heart rate achieved was 98 bpm which is 85 % of the maximum predicted heart rate and blood pressure was 155/83 mmHg. With Lexiscan, patient denied any complaint of chest pain. Cardiac Stress and Resting SPECT Images: Cardiac Stress and Resting SPECT images were obtained using technetium 99m Myoview 32.2 mCi stress and 10.26 mCi at rest. Resting and stress imaging in supine and prone positions demonstrate no evidence of fixed or reversible perfusion defects. Gated imaging demonstrates normal global LV systolic function. LVEF is calculated at 62%. Conclusion: No evidence of fixed or reversible perfusion defects. Gated imaging demonstrates normal global LV systolic function. LVEF is calculated at 62%. Electronically signed by : Celsa Way MD 09/26/2025 15:58:10
[2025-09-26 13:16] VITALS: BP 187/81; PULSE 61; RESP 16
--- NOTE | 2025-09-26 14:01 | ECG_ITS ---
APPROVED REPORT Exam: Resting ECG HR:79 bpm ECG Measurements Heart Rate 79 AXES WI 156 P 74 QRSd 68 QRS 30 QT 360 T 40 QTc 395 Conclusion SINUS RHYTHM NONSPECIFIC T-WAVE ABNORMALITY BORDERLINE ECG UNCONFIRMED REPORT Electronically signed by : Jayro Vargas MD 09/27/2025 08:42:42
--- NOTE | 2025-09-26 14:49 | PC.NURSE ---
Addendum entered by Mary Carmen Barber, RN 09/26/25 15:26: Strike 1500 off of previous note. 1445-Completed nuclear imaging, patient states shoulder pain minimal, she is going to scheduled appt with Dr. Kowalski upon discharge. Original Note: 1345-After Lexiscan completion, patient was instructed to sit in lobby and wait until time for second nuclear imaging. 1350-Patient approach staff and stated her shoulders were severely hurting/aching/burning-8/10 on painscale. 1355-Spoke with Howard Hough PAC, V.O for 12 lead ecg, BP 180/80 1400-Howard Hough PAC, here to assess patient, patient rates her shoulder pain at 3/10, but improving, he agrees with proceeding with nuclear imaging, if pain worsens send patient to ER. 1405-Warm blanket applied to patient shoulders with some pain improvement. 1500
[2025-09-26] MEDS: SODIUM CHLORIDE 0.9% 10ML SYR (RAD ONLY) 10 ML IV ×2 (15:17)
[2025-09-26] MEDS: ISOTOPE MYOVIEW (PER STUDY) 1 DOSE IV (15:17)
[2025-09-26 17:40] LABS: Chloride 105 mmol/L (98-107); Potassium 4.6 mmoL/L (3.5-5.1); Sodium 144 mmol/L (136-145)
[2025-09-26 17:43] LABS: Anion Gap 14.6 mEq/L (5-15); Blood Urea Nitrogen 24 mg/dl (7-17); Calcium 9.5 mg/dl (8.4-10.2); Carbon Dioxide 29 mmol/L (22.0-30.0); Creatinine,Serum 1.10 mg/dl (0.52-1.04); Estimated Glomerular Filt Rate 48 ml/min (>60); GFR (African American) 58 ML/MIN (>60); Glucose 83 mg/dl (74-100)
== END 2025-09-26 23:59 | disposition home or self-care (01) ==
LOC: RAD 11:40
PROVIDERS: PCP Internal Medicine; Visit Provider Internal Medicine
DX: I49.1 Atrial premature depolarization (principal); I49.3 Ventricular premature depolarization; I12.9 Hypertensive chronic kidney disease with stage 1 through stage 4 chronic kidney disease, or unspecified chronic kidney disease; N18.9 Chronic kidney disease, unspecified; E78.5 Hyperlipidemia, unspecified; E87.5 Hyperkalemia; E03.9 Hypothyroidism, unspecified; M54.9 Dorsalgia, unspecified; R55 Syncope and collapse; R94.31 Abnormal electrocardiogram [ECG] [EKG]
CPT/HCPCS: 78452; 80048; 93005; 93017; 93018; A9502; J2785